=== PATIENT | female | born 1990 | race Caucasian/White ===

== ENCOUNTER 2018-04-17 22:27 | Emergency (ER) | payer OTHER ==
[~2018-04-17] VITALS: Ht 167.6 cm; Wt 56.8 kg
[2018-04-17 22:55] VITALS: BP 109/70
[2018-04-17] MEDS ORDERED: SILVER SULFADIAZINE 1% 25 GM CREAM TP ONE (23:15)
[2018-04-17] MEDS ORDERED: KETOROLAC TROMETHAMINE 30 MG/ML VIAL IM ONE (23:15)
== END 2018-04-18 00:44 | disposition home or self-care (01) ==
LOC: EMS 22:28
DX: T23.202A Burn of second degree of left hand, unspecified site, initial encounter (principal); X19.XXXA Contact with other heat and hot substances, initial encounter; Y93.89 Activity, other specified; Y92.89 Other specified places as the place of occurrence of the external cause; Y99.8 Other external cause status
CPT/HCPCS: 16020; 96372; 99284; J1885; Z7610